=== PATIENT | male | born 1995 | race Two or more races ===

== ENCOUNTER 2016-11-28 02:52 | Emergency (ER) | payer OTHER | END 2016-11-28 04:10 | disposition other institution (70) | LOC: ED 02:52 | DX: Z02.89 Encounter for other administrative examinations (principal); S00.83XA Contusion of other part of head, initial encounter; X58.XXXA Exposure to other specified factors, initial encounter; Y93.89 Activity, other specified; Y99.8 Other external cause status; Y92.89 Other specified places as the place of occurrence of the external cause ==

== ENCOUNTER 2016-11-28 02:52 | Emergency (ER) | payer SELFPAY ==
[~2016-11-28] VITALS: Ht 177.8 cm; Wt 117.9 kg
[2016-11-28 04:10] VITALS: BP 110/68
== END 2016-11-28 04:10 | disposition other institution (70) ==
LOC: ED 02:52
DX: S00.83XA Contusion of other part of head, initial encounter (principal); X58.XXXA Exposure to other specified factors, initial encounter; Y93.89 Activity, other specified; Y99.8 Other external cause status; Y92.89 Other specified places as the place of occurrence of the external cause